=== PATIENT | male | born 1985 | race African-American/Black ===

== ENCOUNTER → 2016-04-14 02:40 | Emergency (ER) | payer SELFPAY ==
[~2016-04-14 02:40] MED LIST: AMMONIA SPIRITS AMPULE NAS ONE; EPINEPHrine 1 MG/10 ML (1:10,000) SYR IV ONE
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
== END | disposition expired ==
LOC: ED 02:40 → MERGE 02:40 → ED 04-16 06:45
DX: S21.102A Unspecified open wound of left front wall of thorax without penetration into thoracic cavity, initial encounter (principal); W34.00XA Accidental discharge from unspecified firearms or gun, initial encounter; I46.9 Cardiac arrest, cause unspecified
CPT/HCPCS: 36430; 36556; 71010; 86850; 86900; 86901; 86920; 92950; 99291; J0171; J3490; P9016